=== PATIENT | male | born 1995 | race Caucasian/White ===

== ENCOUNTER → 2020-03-24 14:40 | Outpatient (CLI) | payer OTHER, SELFPAY ==
[2020-03-24 15:23] LABS: Add Manual Diff / Slide Review NO; Basophils Absolute Auto 100 /uL (0-100); Basophils Percent Auto 0.6 % (0-2); Eosinophils Absolute Auto 100 /uL (0-450); Eosinophils Percent Auto 0.6 % (2-4); Hematocrit 44.8 % (41-53); Hemoglobin 15.5 g/dL (13.5-17.5); Lymphocytes Absolute Auto 1200 /uL (1100-4500); Mean Corpuscular HGB Conc 34.5 % (30-36); Mean Corpuscular Hemoglobin 29.3 PG (26-34); Monocytes Absolute Auto 900 /uL (0-900); Monocytes Percent Auto 9.4 % (3-14); Neutrophils Absolute Auto 7300 /uL (1500-7000); Neutrophils Percent Auto 76.4 % (50-75); Platelet Count 198 X10^3/uL (150-400); Red Blood Cell Count 5.27 X10^6/uL (4.5-5.9); Red Cell Distribution Width 13.2 % (11.6-14.8); White Blood Cell Count 9.6 X10^3/uL (4.5-11.0)
[2020-03-24 15:37] LABS: Alanine Aminotransferase 18 IU/L (<50); Albumin 4.4 g/dL (3.5-5.0); Albumin Globulin Ratio 1.5 (1.0-2.8); Alkaline Phosphatase 81 U/L (38-126); Amylase 63 U/L (30-110); Aspartate Aminotransferase 25 IU/L (17-59); BUN Creatinine Ratio 17.1 (6-22); Bilirubin Total 0.7 mg/dL (0.2-1.3); Blood Urea Nitrogen 14 mg/dL (9-20); Calcium 9.9 mg/dL (8.4-10.2); Carbon Dioxide 27 mmol/L (22-32); Chloride 101 mmol/L (98-107); Estimated Glomerular Filt Rate > 60.0 mL/min (>60); Glucose 97 mg/dL (70-100); HEMOLYSIS < 15 (0-50); Lipase 42 U/L (23-300); Potassium 4.1 mmol/L (3.4-5.1); Sodium 135 mmol/L (137-145); Total Protein 7.4 g/dL (6.3-8.2)
[2020-03-25 07:08] LABS: HBsAg Screen Negative (Negative); Hepatitis A Antibody IgM Negative (Negative); Hepatitis B Core Antibody IgM Negative (Negative); Hepatitis C Antibody <0.1 s/co ratio (0.0-0.9)
[2020-03-25 17:40] LABS: COVID19 Sendout Not Detected (Not Detected)
== END ==
PROVIDERS: Family Provider Pediatrics; Referring Provider Physician Assistant; Visit Provider Physician Assistant
DX: Z11.59 Encounter for screening for other viral diseases (principal); R10.9 Unspecified abdominal pain; R11.10 Vomiting, unspecified; R19.7 Diarrhea, unspecified
CPT/HCPCS: 36415; 80053; 80074; 82150; 83690; 85025; 87635

== ENCOUNTER → 2024-12-09 15:20 | Outpatient (CLI) | payer OTHER, SELFPAY ==
[2024-12-09 16:03] LABS: Add Manual Diff / Slide Review NO; Basophils Absolute Auto 0 /uL (0-100); Basophils Percent Auto 0.8 % (0-2); Eosinophils Absolute Auto 300 /uL (0-450); Eosinophils Percent Auto 4.9 % (2-4); Hematocrit 45.3 % (41-53); Hemoglobin 15.6 g/dL (13.5-17.5); Lymphocytes Absolute Auto 1500 /uL (1100-4500); Lymphocytes Percent Auto 27.8 % (25-40); Mean Corpuscular HGB Conc 34.5 % (30-36); Mean Corpuscular Hemoglobin 30.1 PG (26-34); Mean Corpuscular Volume 87.2 fL (80-100); Monocytes Absolute Auto 400 /uL (0-900); Monocytes Percent Auto 8.5 % (3-14); Neutrophils Absolute Auto 3100 /uL (1500-7000); Platelet Count 260 X10^3/uL (150-400); Red Blood Cell Count 5.19 X10^6/uL (4.5-5.9); Red Cell Distribution Width 13.3 % (11.6-14.8); White Blood Cell Count 5.3 X10^3/uL (4.5-11.0)
[2024-12-09 16:24] LABS: Alanine Aminotransferase 58 IU/L (<50); Albumin 4.6 g/dL (3.5-5.0); Albumin Globulin Ratio 1.9 (1.0-2.8); Alkaline Phosphatase 81 U/L (38-126); Aspartate Aminotransferase 45 IU/L (17-59); BUN Creatinine Ratio 17.7 (6-22); Bilirubin Total 0.6 mg/dL (0.2-1.3); Blood Urea Nitrogen 14 mg/dL (9-20); Calcium 9.3 mg/dL (8.4-10.2); Carbon Dioxide 27 mmol/L (22-32); Chloride 105 mmol/L (98-107); Cholesterol 202 mg/dL (140-199); Estimated Glomerular Filt Rate > 60 mL/min (>60); Globulin 2.4 g/dL (1.7-4.1); Glucose 90 mg/dL (70-100); HDL Cholesterol 52 mg/dL (40-60); HEMOLYSIS < 15 (0-50); LDL Cholesterol Calculated 139 mg/dL (<100); Potassium 4.4 mmol/L (3.4-5.1); Sodium 139 mmol/L (137-145); Triglycerides 53 mg/dL (35-150)
[2024-12-09 16:52] LABS: TSH w/ Reflex to FT4 1.57 uIU/mL (0.47-4.68)
[2024-12-27 06:37] LABS: Testosterone Free 25.56 ng/dL (5.00-21.00); Testosterone Total 672.7 ng/dL (264.0-916.0)
== END ==
PROVIDERS: Family Provider Pediatrics; PCP Family Medicine; Referring Provider Family Medicine; Visit Provider Family Medicine
DX: Z00.00 Encounter for general adult medical examination without abnormal findings (principal); R53.83 Other fatigue; F98.8 Other specified behavioral and emotional disorders with onset usually occurring in childhood and adolescence
CPT/HCPCS: 36415; 80053; 80061; 84402; 84403; 84443; 85025

== ENCOUNTER 2025-03-30 10:19 | Emergency (ER) | payer OTHER, SELFPAY ==
[2025-03-30 10:31] VITALS: BP 149/76; PULSE 102; RESP 20; TEMP 36.9; O2SAT 96; BMI 26.1
--- NOTE | 2025-03-30 11:48 | ED_ITS ---
HPI - Skin/Abscess/Foreign Bdy <Roberta Osullivan PA-C - Last Filed: 03/30/25 12:09> General Chief complaint: Skin/Abscess/Foreign Body Stated complaint: Pain in scrotum/Skin irritation Time Seen by Provider: 03/30/25 11:15 Source: patient Mode of arrival: Ambulatory History of Present Illness HPI narrative: Mr. Ashutosh Ojeda is a pleasant 29-year-old male with a past medical history of ADD, appendectomy who presents to emergency department for scrotal skin irritation since last night. 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 Noticed that his groin folds and his scrotum was a little red last night. This morning when he woke up it appeared more red and he also saw what appeared to be some small pimple like bumps which is what caused him to come to the emergency department. At this time he denies any penile pain or lesions, testicular pain, scrotal swelling, drainage from the penis, dysuria, abdominal pain, fevers, chills, nausea, vomiting, flu-like symptoms. He did apply Desitin to the rash which did not help. Denies drug use. He is circumcised. He is not currently sexually active Related Data Previous Rx's ?Medication ?Instructions ?Recorded dextroamphetamine-amphetamine ER 20 mg PO DAILY #30 ca ps 12/05/24 20 mg 24hr capsule,extend release dextroamphetamine-amphetamine ER 20 mg PO DAILY #30 ca ps 12/05/24 20 mg 24hr capsule,extend release dextroamphetamine-amphetamine ER 20 mg PO DAILY #30 ca ps 02/20/25 20 mg 24hr capsule,extend release clotrimazole 1 % topical cream 1 applic topical BID 4 weeks #45 03/30/25 grams doxycycline hyclate 100 mg capsule 100 mg PO BID 7 day s #14 caps 03/30/25 Allergies Allergy/AdvReac Type Severity Reaction Status Date / Time sulfamethoxazole (From Allergy Severe STOPS Verified 03/30/25 10:31 Sept) BREATHING trimethoprim (From ) Allergy Severe STOPS Verified 03/30/25 10:31 BREATHING promethazine Allergy Mild THINKS HIS Verified 03/30/25 10:31 LEGS ARE ON FIRE amoxicillin Allergy Unknown SEIZURE Verified 03/30/25 10:31 Penicillins Allergy Unknown Verified 03/30/25 10:31 Sulfa (Sulfonamide Allergy Unknown ANAPHALAXIC Verified 03/30/25 10:31 Antibiotics) (SULFA (SULFONAMIDE ANTIBIOTICS)) Review of Systems <Roberta Osullivan PA-C - Last Filed: 03/30/25 12:09> Review of Systems ROS Unobtainable: All systems reviewed & are unremarkable except as noted in HPI and below Patient History <Roberta Osullivan PA-C - Last Filed: 03/30/25 12:09> Medical History Preventative health care Fatigue Family history of CVA ADD (attention deficit disorder) Well adult exam Diarrhea Vomiting Abdominal pain Puncture wound of foot Surgical History Anesthesia History of appendectomy (~2013) Family History Mother Cancer Hypertension CVA (cerebral vascular accident) Father No problems noted. Social History Smoking Status: Current every day smoker Smoking Status: Current every day smoker tobacco type: cigarettes and vaping Exam <Roberta Osullivan PA-C - Last Filed: 03/30/25 12:09> Narrative Exam Narrative: GENERAL: 29 year old patient appears stated age. Well-developed patient, in no acute distress. Appears fatigued. HEAD: Atraumatic. Normocephalic. EYES: Pupils equal and round. Extraocular motions intact. No scleral icterus. No injection or drainage. CARDIOVASCULAR: Regular rate RESPIRATORY: ?Nonlabored respirations. ?Speaking in clear, full sentences. GASTROINTESTINAL: Abdomen soft, non-tender, nondistended. Patient gave verbal consent for exam. Desiree nurse greige goods examiner present for exam. Patient has normal-appearing circumcised penis with no venous or drainage. There is erythematous skin in the bilateral skin folds extending onto the surface of the scrotum with no open wounds or drainage. There is no thickening of the scrotal skin or edema. No tenderness to palpation of the bilateral testes, epididymis. EXTREMITIES: No LE edmea. NEURO: AOx3. ?Clear speech. ?Moves all 4 extremities appropriately. Steady gait. SKIN: Erythematous rash in groin folds and scrotum described above. Initial Vital Signs Initial Vital Signs: Vital Signs Temperature 98.4 F 03/30/25 10:31 Pulse Rate 102 H 03/30/25 10:31 Respiratory Rate 20 03/30/25 10:31 Blood Pressure 149/76 H 03/30/25 10:31 Pulse Oximetry 96 03/30/25 10:31 Oxygen Delivery Method Room Air 03/30/25 10:31 <Sera Brown MD - Last Filed: 03/30/25 17:48> Initial Vital Signs Initial Vital Signs: Vital Signs Temperature 98.4 F 03/30/25 10:31 Pulse Rate 102 H 03/30/25 10:31 Respiratory Rate 20 03/30/25 10:31 Blood Pressure 149/76 H 03/30/25 10:31 Pulse Oximetry 96 03/30/25 10:31 Oxygen Delivery Method Room Air 03/30/25 10:31 Course <Roberta Osullivan PA-C - Last Filed: 03/30/25 12:09> Vital Signs Vital signs: Vital Signs - 8 hr 03/30/25 10:31 Temperature 98.4 F Pulse Rate 102 H Respiratory Rate 20 Blood Pressure 149/76 H Pulse Oximetry 96 Oxygen Delivery Method Room Air <Sera Brown MD - Last Filed: 03/30/25 17:48> Vital Signs Vital signs: Vital Signs - 8 hr 03/30/25 10:31 Temperature 98.4 F Pulse Rate 102 H Respiratory Rate 20 Blood Pressure 149/76 H Pulse Oximetry 96 Oxygen Delivery Method Room Air MDM - Skin/Abscess/Foreign Bdy <Roberta Osullivan PA-C - Last Filed: 03/30/25 12:09> Medical Records Attestation: I reviewed the patient's medical records. MDM Narrative Medical decision making narrative: 29-year-old male with a past medical history of ADD, appendectomy who presents to emergency department for scrotal skin irritation since last night. Differential diagnosis includes but is not limited to intertrigo, jock itch, scrotal cellulitis, etc. On exam the patient is in no acute distress, nontoxic appearing, abdomen is soft and nontender. Normal-appearing circumcised penis with no lesions or drainage, he does have erythema an inflamed skin in the bilateral groin folds extending onto the scrotal skin. He has no testicular swelling tenderness scrotal thickening or signs concerning for abscess or wounds. Suspect severe intertrigo/development of tinea cruris with a possible early scrotal cellulitis. After shared decision-making with the patient, we will treat with both antifungal cream and oral antibiotic. Prescribed doxycycline as patient does not have allergy to this in addition to clotrimazole cream. Discussed supportive care such as keeping area clean, dry, cotton underwear. Recommended ibuprofen and Tylenol if needed for pain control. Discussed strict ED return precautions. Patient verbalized understanding of all information and is agreeable to the plan. He is stable for discharge home. Discharge Plan Departure Patient Disposition: Home Clinical Impression: Cellulitis of scrotum, Intertrigo Instructions: DI for Cellulitis -- Adult, DI for Intertrigo Activity Restrictions/Additional Instructions: Dear Armstrong, Thank you for coming to the emergency department. Today you were evaluated for pain and redness of your scrotum and groin. At this time it looks like you have irritation in the groin called intertrigo which has led to superficial infection of the scrotal skin called cellulitis. You have been prescribed an oral antibiotic, it is very important to complete the full course. You have also been prescribed topical antifungal cream to apply twice a day to the groin folds in the scrotum for at least the next 2-4 weeks. Please wear clean, dry cotton underwear and prevent excess moisture and heat in the groin (you may need to bring an extra pair of underwear to change into during long shifts working). Please return to the emergency department if you develop fevers, worsening pain, drainage from the penis, testicular swelling, or any other concerns. Please take Ibuprofen (Motrin/Advil) or Acetaminophen (Tylenol) for pain. These are available over the counter. You may take Ibuprofen 600 mg every 8 hours with food for pain. You may also take Acetaminophen 650 mg every 4-6 hours for pain. Do not exceed 3000 mg of Tylenol a day as this can cause liver damage. Do not drink alcohol with either of these medications. Please follow up with your primary care doctor within the next 2-3 days for ER follow-up. (If you do not have a PCP you can call [phone]. ?to schedule an appointment with an [facility] Primary Care Provider) IF YOU DEVELOP ANY NEW OR WORSENING SYMPTOMS, RETURN TO THE ER! Please read the attached instructions, they highlight more specific treatments and interventions for you at home. Thank you for letting me participate in your care, Roberta Osullivan PA-C Prescriptions: New doxycycline hyclate 100 mg capsule 100 mg PO BID 7 Days Qty: 14 0RF clotrimazole 1 % cream 1 applic topical BID 28 Days Qty: 45 0RF Rx Instructions: 2-4 weeks No Action dextroamphetamine-amphetamine 20 mg capsule,extended release 24hr 20 mg PO DAILY Qty: 30 0RF Rx Instructions: Rx 1/3 dextroamphetamine-amphetamine 20 mg capsule,extended release 24hr 20 mg PO DAILY Qty: 30 0RF Rx Instructions: Rx 3/3 dextroamphetamine-amphetamine 20 mg capsule,extended release 24hr 20 mg PO DAILY Qty: 30 0RF Rx Instructions: Rx 2/3 Referrals: Gustabo Downing, [Primary Care Provider, Family Practice] Stand Alone Forms: Patient Portal/API ED Sign-out <Sera Brown MD - Last Filed: 03/30/25 17:48> Cosign ED Attending Coselishaature Attestation: I was immediately available in the department for consultation throughout this patient's visit. Sera Brown MD
== END 2025-03-30 12:05 | disposition home or self-care (01) ==
PROVIDERS: Emergency Provider Physician Assistant; Family Provider Pediatrics; PCP Family Medicine
DX: N49.2 Inflammatory disorders of scrotum (principal); L30.4 Erythema intertrigo
CPT/HCPCS: 99281